=== PATIENT | female | born 1950 | race Caucasian/White ===

== ENCOUNTER 2024-04-17 08:43 | Inpatient (IN) | payer MEDICARE ==
[2024-04-17 09:35] LABS: #Basophils 0.08 10x3/uL (0.0-0.2); #Eosinophils 0.06 10x3/uL (0.0-0.5); #Monocytes 0.23 10x3/uL (0.0-1.1); #Neutrophils 2.55 10x3/uL (1.5-8.4); %Basophils 2.6 % (0.0-2.0); %Eosinophils 1.9 % (0.0-6.0); %Lymphocytes 6.4 % (18.0-47.0); %Monocytes 7.3 % (0.0-10.0); %Neutrophils 81.5 % (40.0-75.0); Hematocrit 31.3 % (34.9-44.5); Hemoglobin 10.5 g/dL (12.0-15.5); Mean Corpuscular HGB CONC 33.5 g/dL (32.0-36.0); Mean Corpuscular Hemoglobin 37.5 pg (27.0-33.0); Mean Corpuscular Volume 111.8 fL (81.6-98.3); Mean Platelet Volume 9.3 fL (7.4-10.4); Platelet Count 178 10x3/uL (150-450); RBC Distribution Width 14.7 % (11.5-14.5); White Blood Cell (WBC) Count 3.1 10x3/uL (3.5-10.5)
[2024-04-17 09:47] LABS: Troponin I 0.013 ng/mL (< 0.028)
[2024-04-17 09:56] LABS: AST (SGOT) 38 U/L (5-34); Bilirubin, Total 1.3 mg/dL (0.2-1.2); Calcium 9.5 mg/dL (7.8-10.44); Chloride 106 mmol/L (98-107); Potassium 3.7 mmol/L (3.5-5.1); Sodium 138 mmol/L (136-145)
[2024-04-17] MEDS ORDERED: Cefepime 2 GM VIAL ONE (10:00)
[2024-04-17] MEDS ORDERED: Iopamidol 370 76% 100 ML VIAL ONE (10:01)
[2024-04-17 10:07] LABS: Prothrombin Time 40.1 sec (9.5-12.1)
[2024-04-17 10:33] LABS: ALT (SGPT) 26 U/L (8-55); Albumin 3.8 g/dL (3.4-4.8); Alkaline Phosphatase 77 U/L (40-110); Anion Gap 15 mmol/L (10-20); BUN (Urea Nitrogen) 22 mg/dL (9.8-20.1); Calc. Creatinine Clearance 0 mL/min (70-130); Carbon Dioxide 21 mmol/L (23-31); Estimated GFR 45; Globulin 2.5 g/dL (2.4-3.5); Glucose 115 mg/dL (83-110); Protein, Total 6.3 g/dL (5.8-8.1)
[2024-04-17 11:07] LABS: Macrocytosis SLIGHT = 6-15 cells (100X) (0-5/hpf)
[2024-04-17] MEDS ORDERED: Furosemide 40 MG (4 mL) VIAL ONE (12:05)
[2024-04-17] MEDS ORDERED: Ondansetron PF 4 MG/2 ML Vial IVP PRN (12:16)
[2024-04-17] MEDS ORDERED: Acetaminophen 325 MG TAB PO PRN (12:16)
[2024-04-17] MEDS: Furosemide 40 MG (4 mL) VIAL SLOW IVP SCH (14:10)
[2024-04-17] MEDS: VANCOMYCIN 1.25 GM/250 ML BAG 1.25 GM in Premix 1 BAG IVPB SCH (14:35)
[2024-04-17] MEDS ORDERED: Perflutren Lipid Microspheres 1.1 MG/ML VIAL ONE (16:19)
[2024-04-17] MEDS ORDERED: Vancomycin 1 GM in Premix 1 BAG IVPB SCH (21:00)
[2024-04-17] MEDS: Cefepime 2 GM in Sodium Chloride 0.9% 100 ML IVPB SCH (21:26)
[2024-04-17] MEDS: Famotidine 20 MG TAB PO SCH (21:27)
[2024-04-18 04:28] LABS: Calcium 8.6 mg/dL (7.8-10.44); Chloride 106 mmol/L (98-107); Potassium 3.4 mmol/L (3.5-5.1); Sodium 140 mmol/L (136-145)
[2024-04-18 04:30] LABS: Vancomycin, Random 8.9 ug/mL (See Comment)
[2024-04-18 04:35] LABS: Hemoglobin 10.4 g/dL (12.0-15.5); MDiff Complete? YES; Mean Corpuscular HGB CONC 34.7 g/dL (32.0-36.0); Mean Corpuscular Hemoglobin 38.5 pg (27.0-33.0); Mean Corpuscular Volume 111.1 fL (81.6-98.3); Mean Platelet Volume 9.8 fL (7.4-10.4); Platelet Count 162 10x3/uL (150-450); RBC Distribution Width 14.7 % (11.5-14.5); White Blood Cell (WBC) Count 2.4 10x3/uL (3.5-10.5)
[2024-04-18 04:36] LABS: INR-International Normal Ratio 4.4; Prothrombin Time 43.4 sec (9.5-12.1)
[2024-04-18 05:08] LABS: ALT (SGPT) 21 U/L (8-55); AST (SGOT) 27 U/L (5-34); Albumin 3.5 g/dL (3.4-4.8); Alkaline Phosphatase 65 U/L (40-110); Anion Gap 17 mmol/L (10-20); BUN (Urea Nitrogen) 19 mg/dL (9.8-20.1); Bilirubin, Total 1.5 mg/dL (0.2-1.2); Calc. Creatinine Clearance 49 mL/min (70-130); Carbon Dioxide 20 mmol/L (23-31); Estimated GFR 53; Globulin 2.2 g/dL (2.4-3.5); Glucose 93 mg/dL (83-110); Protein, Total 5.7 g/dL (5.8-8.1)
[2024-04-18 05:10] LABS: Eosinophils 2 % (0-10); Lymphocytes 15 % (21-51); Monocytes 5 % (0-10); Neutrophil 72 % (42-75)
[2024-04-18 05:15] LABS: Macrocytosis SLIGHT = 6-15 cells (100X) (0-5/hpf); Platelet Adequacy Comment Appears Adequate
[2024-04-18 05:16] LABS: Reflex for Review?? YES
[2024-04-18] MEDS: FLU (Fluad Triv) TS24-25 (65UP)/MF59C/PF 45 MCG/0.5 ML Syringe IM ONE (08:39)
[2024-04-18] MEDS: Aspirin 81 mg Enteric Coated Tablet PO SCH (08:43)
[2024-04-18] MEDS ORDERED: PALBOCICLIB 125 MG PO SCH (09:00)
[2024-04-18] MEDS: Potassium Chloride 20 MEQ TAB PO SCH (10:15)
[2024-04-18] MEDS ORDERED: VANCOMYCIN 1.25 GM/250 ML BAG 1.25 GM in Premix 1 BAG IVPB SCH (10:30)
[2024-04-18] MEDS ORDERED: Vancomycin 1 GM in Sodium Chloride 0.9% 250 ML 250 ML IVPB SCH (10:30)
[2024-04-18 10:57] LABS: Magnesium 1.8 mg/dL (1.6-2.6)
[2024-04-18] MEDS: Magnesium 2 GM/50 ML(in water) 2 GM in Premix 1 BAG IVPB SCH (12:39)
[2024-04-18] MEDS: PALBOCICLIB 125 MG PO SCH (15:43)
[2024-04-18] MEDS ORDERED: Warfarin Sodium 5 MG TAB PO SCH (17:00)
[2024-04-19 04:07] LABS: INR-International Normal Ratio 2.6; Prothrombin Time 26.2 sec (9.5-12.1)
[2024-04-19 04:37] LABS: Anion Gap 16 mmol/L (10-20); BUN (Urea Nitrogen) 19 mg/dL (9.8-20.1); Calc. Creatinine Clearance 50 mL/min (70-130); Calcium 9.2 mg/dL (7.8-10.44); Carbon Dioxide 23 mmol/L (23-31); Chloride 104 mmol/L (98-107); Estimated GFR 55; Glucose 93 mg/dL (83-110); Magnesium 2.2 mg/dL (1.6-2.6); Potassium 3.6 mmol/L (3.5-5.1); Sodium 139 mmol/L (136-145)
[2024-04-19] MEDS ORDERED: Lisinopril 2.5 MG TAB PO SCH (09:00)
[2024-04-19] MEDS: Lisinopril 2.5 MG TAB PO SCH (09:30)
[2024-04-19] MEDS: Potassium Chloride 20 MEQ TAB PO SCH (09:31)
[2024-04-19] MEDS: Warfarin Sodium 5 MG TAB PO SCH (16:43)
[2024-04-19] MEDS: Furosemide 20 MG TAB PO SCH (16:43)
[2024-04-19] MEDS: Carvedilol 3.125 MG TAB PO SCH (16:43)
[2024-04-20 05:09] LABS: Prothrombin Time 20.8 sec (9.5-12.1)
[2024-04-20 07:23] VITALS: BMI 25.3
[2024-04-20] MEDS ORDERED: Furosemide 40 MG (4 mL) VIAL SLOW IVP SCH (09:00)
[2024-04-20] MEDS: Potassium Chloride 10 MEQ TAB PO SCH (09:59)
[2024-04-20 11:52] VITALS: BP 97/55; TEMP 97.6
== END 2024-04-20 12:32 | disposition home or self-care (01) | DRG 291 ==
LOC: CSHERS 08:43 → CSHTELE 13:16 → OBSVTOIN 13:16 → UNDODISIN 04-18 15:32
PROVIDERS: ADMIT Hospitalist; ATTEND Family Medicine
DX: I50.23 Acute on chronic systolic (congestive) heart failure (principal); J96.01 Acute respiratory failure with hypoxia; I47.20 Ventricular tachycardia, unspecified; C79.51 Secondary malignant neoplasm of bone; I42.8 Other cardiomyopathies; I42.7 Cardiomyopathy due to drug and external agent; E87.6 Hypokalemia; Z79.01 Long term (current) use of anticoagulants; I95.89 Other hypotension; Z90.11 Acquired absence of right breast and nipple; Z95.2 Presence of prosthetic heart valve; C50.911 Malignant neoplasm of unspecified site of right female breast; T45.1X5A Adverse effect of antineoplastic and immunosuppressive drugs, initial encounter; Z92.25 Personal history of immunosuppression therapy; M81.0 Age-related osteoporosis without current pathological fracture
CPT/HCPCS: 0439T; 36415; 71045; 71275; 80048; 80053; 80202; 83605; 83735; 83880; 84145; 84484; 85025; 85060; 85610; 85730; 87040; 87081; 93005; 93010; 94760; 96374; 96375; J0692; J1940; J3370; J3475; Q9957; Q9967